=== PATIENT | female | born 1945 | race Caucasian/White ===

== ENCOUNTER 2022-04-24 06:23 | Observation (INO) ==
[2022-04-24] MEDS ORDERED: ACETAMINOPHEN 325 MG TABLET PO PRN (10:38)
[2022-04-24] MEDS ORDERED: GLUCAGON 1 MG VIAL IM PRN (10:38)
[2022-04-24] MEDS ORDERED: DEXTROSE 10% 250 ML BAG IV PRN ×2 (10:38→11:18)
[2022-04-24] MEDS ORDERED: ALBUTEROL 2.5 MG/3 ML NEB RESP TX PRN (11:21)
[2022-04-24 11:54] LABS: Alanine Aminotransferase 13 U/L (13-56); Albumin 2.4 G/DL (3.4-5.0); Alkaline Phosphatase 100 U/L (45-117); Aspartate Amino Transferase 12 U/L (0-37); Bilirubin,Total < 0.39 MG/DL (0.20-1.00); Blood Urea Nitrogen 20 MG/DL (7-18); Calcium 7.7 MG/DL (8.5-10.1); Carbon Dioxide 28 MMOL/L (21-32); Chloride 105 MMOL/L (98-107); Glucose 236 MG/DL (74-106); Osmolality,Calculated 291.3 MOS/KG (273-304); Potassium 4.2 MMOL/L (3.5-5.1); Sodium 141 MMOL/L (136-145); Thyroid Stimulating Hormone 0.806 uIU/ml (0.358-3.74); Total Protein 5.8 G/DL (6.4-8.2)
[2022-04-24] MEDS ORDERED: FUROSEMIDE 40 MG/4 ML VIAL IV ONE (14:01)
[2022-04-24] MEDS: ASPIRIN CHEW 81 MG TABLET PO SCH (14:30)
[2022-04-24] MEDS: INSULIN LISPRO 100 UNIT/ML SUBCUT SCH (16:56)
[2022-04-24] MEDS: ENOXAPARIN 40 MG/0.4 ML SYRINGE SUBCUT SCH (21:08)
[2022-04-25 04:39] LABS: Basophils % 0.2 % (0.0-0.8); Eosinophils % 0.3 % (0.00-10.9); Hematocrit 37.3 VOL% (35.7-47.0); Hemoglobin 11.6 GM/DL (12.0-16.0); Immature Granulocytes % 0.5 %; Immature Granulocytes Absolute 0.04 #; Lymphocytes # 0.9 10*3/uL (1.4-4.0); Lymphocytes % 10.2 % (21.3-54.2); Mean Corpuscular HGB Conc 31.1 GM/DL (32-36); Mean Corpuscular Volume 94.7 FL (87-102); Mean Platelet Volume 10.3 FL (9.6-12.0); Monocytes # 0.6 10*3/uL (0.11-0.8); Monocytes % 6.6 % (1.7-12.7); Neutrophils % 82.2 % (38.7-73.9); Platelet Count 214 T/CUMM (130-400); Red Blood Count 3.94 MC/CUMM (3.8-5.5); Red Cell Distribution Width 15.9 % (9.3-17.3); White Blood Count 8.8 T/CUMM (4-12)
[2022-04-25 04:57] LABS: Osmolality,Calculated 287.1 MOS/KG (273-304); Potassium 4.1 MMOL/L (3.5-5.1); Risk Ratio 2.45; VLDL Cholesterol 18.4 MG/DL
[2022-04-25] MEDS: INSULIN LISPRO 100 UNIT/ML SUBCUT SCH ×2 (09:12→17:55)
[2022-04-25] MEDS: ASPIRIN CHEW 81 MG TABLET PO SCH (09:27)
[2022-04-25] MEDS: CETIRIZINE 10 MG TABLET PO SCH (09:27)
[2022-04-25] MEDS ORDERED: LOPERAMIDE 2 MG CAPSULE PO PRN (12:17)
[2022-04-25] MEDS: ENOXAPARIN 40 MG/0.4 ML SYRINGE SUBCUT SCH (22:32)
[2022-04-26] MEDS: INSULIN LISPRO 100 UNIT/ML SUBCUT SCH (07:28)
[2022-04-26] MEDS: ASPIRIN CHEW 81 MG TABLET PO SCH (09:08)
[2022-04-26] MEDS: CETIRIZINE 10 MG TABLET PO SCH (09:08)
[2022-04-26] MEDS ORDERED: MYLANTA/LIDO VISC 2:1 300 ML BOTTLE SWISH/SPIT PRN (09:41)
[2022-04-26] MEDS ORDERED: guaiFENesin/DM ER 600-30 MG TABLET PO PRN (09:42)
[2022-04-26] MEDS ORDERED: PANTOPRAZOLE 40 MG TABLET PO SCH (10:00)
[2022-04-26 16:24] VITALS: BP 143/67
== END 2022-04-26 16:12 | disposition home or self-care (01) ==
LOC: N.TELEN 10:08 → INTOOBSV 10:08 → SUATTDRO 10:38
PROVIDERS: ADMIT Internal Medicine; ATTEND Internal Medicine Geriatric Medicine